=== PATIENT | female | born 1940 | race Caucasian/White ===

== ENCOUNTER 2019-11-17 00:23 | Observation (INO) | payer OTHER ==
--- OUTSIDE RECORDS SUMMARY | 2019-11-17 00:25 | XMS REPORT | Continuity of Care Document ---
:1940 Author Organization [facility] t Address [address] [place] [address] Care Team Providers Name Role Phone Unavailable Unavailable Unavailable Problems Condition Condition Condition Status Onset Resolution Last Treating Co mments Source Name Details Category Date Date Treatment Clinician Date Hyperlipem Hyperlipem Problem Active [facility] Arrhythmia Arrhythmia Problem Active [facility] Essential Essential Problem Active [facility] hypertensi hypertensi Anju kes - on on [facility] Sinus Sinus Problem Active [facility] problem problem [facility] Allergic Allergic Problem Active [facility]initis, [facility]initis, Luke [facility] - unspecifie unspecifie Me moria d d l [facility] Allergies, Adverse Reactions, Alerts Allergy Allergy Status Severity Reaction(s) Onset Inactive Treating Comm ents Source Name Type Date Date Clinician Sulfa Adverse Active itching [facility] Medications Ordered Filled Start Stop Current Ordering Indication Dosage Frequency Signature Comments Components Source Medication Medication Date Date Medication? Clinician (SIG) Name Name Augmentin Augmentin 2020- Yes Ana Rosa [address] [facility] 7[facility]15 07-25 [facility] ProAir HFA ProAir HFA 2017-0 Yes Ana Rosa [address] [facility] 5[facility]24 Millender needed [facility] Aspirin Aspirin Yes Ana Rosa [address] [facility] Lisinopril Lisinopril Yes Ana Rosa [address] [facility] Fish Oil Fish Oil Yes Ana Rosa [address] [facility] Multaq Multaq Yes Ana Rosa [address] [facility] [place] with meals [facility] [facility] Procedures This patient has no known procedures. Encounters Start End Encounter Admission Attending Care Care Encounter Source Date/Time Date/Time Type Type Clinicians Facility Department ID 2019-10-03 2019-10-03 [facility] [place] [id number] [facility] 23:11[facility]00 23:11[facility]00 [facility] 2019-10-03 2019-10-03 [facility] [id number] [facility] 10:14:00 10:14:00 [facility] 2019-10-03 2019-10-03 [facility] [id number] [facility] 08:40[facility]00 08:40[facility]00 [facility] 2019-09-20 2019-09-20 [facility] [id number] 09:03:00 09:03:00 [facility] Medicine Outpati ent Clinics 2019-07-31 2019-07-31 [facility] [id number] [address] 16:15:00 16:15:00 [facility] Medicine Outpati ent Clinics 2019-07-27 2019-07-27 [facility] [id number] [facility] 13:00:00 13:00:00 [facility] 2019-01-01 2019-01-01 [facility] [id number] [address] 08:20:00 08:20:00 [facility] Medicine Outpati ent Clinics 2018-12-29 2018-12-29 [facility] [id number] [address] 09:32:00 09:32:00 [facility] Medicine Outpati ent Clinics 2018-09-19 2018-09-19 [facility] [id number] 14:00:00 14:00:00 [facility] 2018-07-10 2018-07-10 Outpatient Saran Noonant [id number] 12:45:00 12:45:00 t [facility] 2018-05-08 2018-05-08 Outpatient Saran King [id number] [facility] 10:15:00 10:15:00 t [facility] ent Clinics 2017-12-05 2017-12-05 Outpatient Saran King [id number] 11:00:00 11:00:00 t [facility] ent Clinics Results This patient has no known results.
--- OUTSIDE RECORDS SUMMARY | 2019-11-17 00:25 | XMS REPORT ---
:1940 Author Organization [employer] Care Team Providers Name Role Phone Ana Rosa Garcia Provider Role Unavailable Allergies No Known Allergies Problems Problem Type Condition Code Onset Dates Condition Statu s Problem HTN (hypertension) I10 Active Problem Hyperlipemia E78.5 Active Problem Essential hypertension I10 Activ e Problem Allergic rhinitis, unspecified J30.9 Active Problem Arrhythmia I49.9 Active Problem Sinus problem J34.9 Active Medications No Known Medications Results No Known Results Summary Purpose eClinicalWorks Submission
--- OUTSIDE RECORDS SUMMARY | 2019-11-17 00:25 | XMS REPORT ---
:1940 Author Organization [employer] Care Team Providers Name Role Phone Ana Rosa Garcia Provider Role Unavailable Allergies, Adverse Reactions, Alerts Substance Reaction Event Type Sulfa itching Drug Allergy Problems Problem Type Condition Code Onset Dates Condition Statu s Assessment Essential hypertension I10 Activ e Assessment URI, acute J06.9 Active Assessment Otalgia, bilateral H92.03 Active Problem HTN (hypertension) I10 Active Problem Hyperlipemia E78.5 Active Problem Essential hypertension I10 Activ e Problem Allergic rhinitis, unspecified J30.9 Active Problem Arrhythmia I49.9 Active Problem Sinus problem J34.9 Active Medications Medication Code System Code Instructions Start End Date Status Dos age Date Multaq [facility] 90564390982 400 MG Orally Active 1 tabl et Twice a day with meals ProAir HFA [facility] 34130305399 108 (90 Base) August 11, Active 2 p uffs as MCG/ACT 2017 needed Inhalation every 4-6 hrs Fish Oil ND 16778618749 1000 MG Orally Active 1 ca psule Once a day Lisinopril ND 11784623833 10 MG Orally Active 1 ta blet Once a day Aspirin ND 47135057963 325 MG Orally Active 1 tabl et Once a day Augmentin [facility] 94071572161 500-125 MG October 02October 12, Active 1 tab let Orally Twice 2019 2019 daily Results No Known Results Summary Purpose eClinicalWorks Submission
--- OUTSIDE RECORDS SUMMARY | 2019-11-17 00:25 | XMS REPORT ---
:1940 Author Organization [employer] Care Team Providers Name Role Phone Ana Rosa Garcia Provider Role Unavailable Allergies No Known Allergies Problems Problem Type Condition Code Onset Dates Condition Statu s Problem Hyperlipemia E78.5 Active Problem Arrhythmia I49.9 Active Problem HTN (hypertension) I10 Active Problem Sinus problem J34.9 Active Problem Allergic rhinitis, unspecified J30.9 Active Medications No Known Medications Results No Known Results Summary Purpose eClinicalWorks Submission
[2019-11-17] MEDS ORDERED: ALBUTEROL 2.5 MG/3 ML NEB SOL ONE (00:48)
[2019-11-17] MEDS ORDERED: IPRATROPIUM BROM 0.5MG/2.5ML ONE (00:48)
[2019-11-17] MEDS ORDERED: METHYLPREDNISOLONE 125 MG INJ ONE (01:23)
[2019-11-17] MEDS ORDERED: FUROSEMIDE 40 MG/4 ML VIAL ONE (01:23)
[2019-11-17] MEDS ORDERED: CEFTRIAXONE/SWI 1gm 1 GM/10 ML SYR ONE (01:24)
[2019-11-17] MEDS ORDERED: NA CHLORIDE 0.9% 1,000 ML ONE (01:24)
[2019-11-17 01:29] LABS: Absolute Lymphocytes (CBC) 2.3 K/uL (0.7-4.9); Basophils % 1.2 % (0-1.3); Hematocrit 40.8 % (36.0-45.0); Lymphocytes % 36.3 % (15.3-44.8); MPV 8.3 fL (7.6-11.3); RBC Red Blood Cell Count 4.41 M/uL (3.86-4.86)
[2019-11-17 01:45] LABS: ALT/SGPT 26 U/L (12-78); AST/SGOT 14 U/L (15-37); Albumin 3.8 g/dL (3.4-5.0); Alkaline Phosphatase 99 U/L (45-117); BUN Blood Urea Nitrogen 18 mg/dL (7-18); Bicarbonate 28 mmol/L (21-32); Bilirubin Direct 0.1 mg/dL (0-0.2); Bilirubin Total 0.5 mg/dL (0.2-1.0); Glucose Level 105 mg/dL (74-106); Magnesium 2.1 mg/dL (1.8-2.4); NT PRO-BNP 175 pg/mL (<450); Potassium 3.8 mmol/L (3.5-5.1); Protein, Total 7.6 g/dL (6.4-8.2); Sodium Level 143 mmol/L (136-145); Troponin (Emerg Dept Use Only) < 0.02 ng/mL (0.0-0.045)
--- NOTE | 2019-11-17 02:07 | EDPHYS ---
Physician Documentation [facility] Name: Dianne Stockton Age: 79 yrs Sex: Female : 1940 Arrival Date: 11/17/2019 Time: 00:24 Bed 4 Private MD: ED Physician Desean Barros HPI: 11/16 01:26 This 79 yrs old Female presents to ER via Unassigned with complaints of etta Shortness Of Breath. 01:26 The patient has shortness of breath with light activity. Onset: The symptoms/episode etta began/occurred last night. Duration: The symptoms are continuous, and are steadily getting worse. The patient's shortness of breath has no apparent modifying factors. Associated signs and symptoms: Pertinent positives: non-productive cough. Severity of symptoms: At their worst the symptoms were moderate in the emergency department the symptoms are unchanged. The patient has not experienced similar symptoms in the past. Historical: - Allergies: 01:43 Sulfa; bb - Home Meds: 01:43 Multaq oral oral [Active]; bb - PMHx: 01:43 Hypertension; enlarged heart; bb - Immunization history:: Adult Immunizations not up to date. - Social history:: Smoking status: Patient denies any tobacco usage or history of. - Family history:: not pertinent. ROS: 01:27 Constitutional: Negative for fever, chills, and weight loss, Eyes: Negative for injury, etta pain, redness, and discharge, ENT: Negative for injury, pain, and discharge, Neck: Negative for injury, pain, and swelling, Abdomen/GI: Negative for abdominal pain, nausea, vomiting, diarrhea, and constipation, Back: Negative for injury and pain, : Negative for injury, bleeding, discharge, and swelling, MS/Extremity: Negative for injury and deformity, Skin: Negative for injury, rash, and discoloration, Neuro: Negative for headache, weakness, numbness, tingling, and seizure, Psych: Negative for depression, anxiety, suicide ideation, homicidal ideation, and hallucinations, Allergy/Immunology: Negative for hives, rash, and allergies, Endocrine: Negative for neck swelling, polydipsia, polyuria, polyphagia, and marked weight changes, Hematologic/Lymphatic: Negative for swollen nodes, abnormal bleeding, and unusual bruising. 01:27 Cardiovascular: Positive for chest pain, palpitations. 01:27 Respiratory: Positive for cough, dyspnea on exertion, shortness of breath, wheezing, inspiratory, expiratory. Exam: 01:27 Constitutional: This is a well developed, well nourished patient who is awake, alert, etta and in no acute distress. Head/Face: Normocephalic, atraumatic. Eyes: Pupils equal round and reactive to light, extra-ocular motions intact. Lids and lashes normal. Conjunctiva and sclera are non-icteric and not injected. Cornea within normal limits. Periorbital areas with no swelling, redness, or edema. ENT: Nares patent. No nasal discharge, no septal abnormalities noted. Tympanic membranes are normal and external auditory canals are clear. Oropharynx with no redness, swelling, or masses, exudates, or evidence of obstruction, uvula midline. Mucous membranes moist. Neck: Trachea midline, no thyromegaly or masses palpated, and no cervical lymphadenopathy. Supple, full range of motion without nuchal rigidity, or vertebral point tenderness. No Meningismus. Chest/axilla: Normal chest wall appearance and motion. Nontender with no deformity. No lesions are appreciated. Abdomen/GI: Soft, non-tender, with normal bowel sounds. No distension or tympany. No guarding or rebound. No evidence of tenderness throughout. Back: No spinal tenderness. No costovertebral tenderness. Full range of motion. Female : Normal external genitalia. Skin: Warm, dry with normal turgor. Normal color with no rashes, no lesions, and no evidence of cellulitis. MS/ Extremity: Pulses equal, no cyanosis. Neurovascular intact. Full, normal range of motion. Neuro: Awake and alert, GCS 15, oriented to person, place, time, and situation. Cranial nerves II-XII grossly intact. Motor strength 5/5 in all extremities. Sensory grossly intact. Cerebellar exam normal. Normal gait. Psych: Awake, alert, with orientation to person, place and time. Behavior, mood, and affect are within normal limits. 01:27 Cardiovascular: Rate: tachycardic, Rhythm: regular, Heart sounds: normal, normal S1and S2, no S3 or S4, no murmur, no rub, no gallop, JVD: is not appreciated. 02:09 ECG was reviewed by the Attending Physician. [facility] Vital Signs: 00:34 BP 181 / 127; Pulse 119; Temp 97.9; Pulse Ox 93% on 2 lpm NC; Weight 72.57 kg (R); bb 01:00 BP 143 / 79; Pulse 77; Resp 20 S; Pulse Ox 99% on 2 lpm NC; bb 01:30 BP 137 / 78; Pulse 74; Resp 18 S; Pulse Ox 98% on 2 lpm NC; bb 05:21 BP 114 / 78; Pulse 64; Resp 18; Pulse Ox 96% on 2 lpm NC; ea 06:02 BP 105 / 59; Pulse 65; Resp 19; Pulse Ox 95% on 2 lpm NC; ea MDM: 00:44 Patient medically screened. etta 01:28 Differential diagnosis: Anxiety Reaction asthma, Bronchitis CHF exacerbation, Chronic etta Obstructive Pulmonary Disease hypertensive crisis, Malignant HTN, pneumonia, Pneumothorax pulmonary edema, Pulmonary Embolism Sepsis. Antibiotic administration: rocephin. The patient's Wells Deep Vein Thrombosis Score was calculated as follows: Total Score: 0-2 Pts- Low Risk. The patient's pulmonary embolism risk score was calculated as follows: Total Score: 0-2 points. This patient was found to be at low risk for a pulmonary embolism by using the Well's assessment criteria. Immunization status: Influenza vaccine: Data reviewed: vital signs, nurses notes, lab test result(s), EKG, radiologic studies, plain films. Data interpreted: youth nutritional monitor: rate is 119 beats/min, rhythm is regular, Pulse oximetry:. Test interpretation: by ED physician or midlevel provider: ECG, plain radiologic studies. 02:06 ED course: improved, decreased wheezing , better air movement, blood pressure. [facility] 02:08 ED course: needs echo, repeat cxr, obs. [facility] 11/16 00:46 Order name: Basic Metabolic Panel; Complete Time: 02:04 [facility] 11/16 00:46 Order name: CBC with Diff; Complete Time: 02:04 [facility] 11/16 00:46 Order name: LFT's; Complete Time: 02:04 [facility] 11/16 00:46 Order name: Magnesium; Complete Time: 02:04 [facility] 11/16 00:46 Order name: NT PRO-BNP; Complete Time: 02:04 [facility] 11/16 00:46 Order name: PT-INR; Complete Time: 02:04 [facility] 11/16 00:46 Order name: Troponin (emerg Dept Use Only); Complete Time: 02:04 [facility] 11/16 00:46 Order name: Blood Culture Adult (2) [facility] 11/16 01:08 Order name: Lactate; Complete Time: 02:04 tt3 11/16 02:15 Order name: Urine Dipstick--Ancillary (enter results) tt 11/16 02:16 Order name: Urine Dipstick-Ancillary [facility] 11/16 02:17 Order name: Urinalysis EDAL 11/16 02:17 Order name: Basic Metabolic Panel [facility] 11/16 02:17 Order name: Basic Metabolic Panel [facility] 11/16 00:46 Order name: XRAY Chest (1 view) [facility] 11/16 00:46 Order name: EKG; Complete Time: 00:47 [facility] 11/16 02:17 Order name: CBC with Automated Diff [facility] 11/16 02:17 Order name: CBC with Automated Diff [facility] 11/16 02:48 Order name: Urine Culture [facility] 11/16 03:46 Order name: COVID-19 11/16 03:54 Order name: CORONAVIRUS [facility] 11/16 04:52 Order name: SARS-COV-2 RT PCR [facility] 11/16 00:46 Order name: Cardiac monitoring; Complete Time: 01:29 [facility] 11/16 00:46 Order name: EKG - Nurse/Tech; Complete Time: 02:01 [facility] 11/16 00:46 Order name: IV Saline Lock; Complete Time: 01: [facility] 11/16 00:46 Order name: Labs collected and sent; Complete Time: 01: [facility] 11/16 00:46 Order name: O2 Per Protocol; Complete Time: : [facility] 11/16 00:46 Order name: O2 Sat Monitoring; Complete Time: : [facility] 11/16 02:14 Order name: CONS Physician Consult [facility] 11/16 02:17 Order name: Regular EDAL EC:09 Rate is 68 beats/min. Rhythm is regular. QRS [place] is Normal. DE interval is normal. QRS etta interval is normal. QT interval is normal. No Q waves. T waves are Normal. Clinical impression: NSR w/ Non-specific ST/T Changes and No evidence of ischemia. Interpreted by me. Reviewed by me. Administered Medications: 11/15 00:50 Drug: Albuterol 2.5 mg Route: Inhalation; 11/16 00:50 Drug: AtroVENT Aerosol 0.5 mg Route: Inhalation; bb 02:50 Follow up: Response: Marked relief of symptoms bb 00:50 Drug: Albuterol 2.5 mg Route: Inhalation; bb 02:50 Follow up: Response: Marked relief of symptoms bb 00:50 Drug: Albuterol 2.5 mg Route: Inhalation; bb 01:07 CANCELLED (Physician Discretion): Nitro-Bid Ointment 2 % 1 inches Transdermal once bb 01:10 Drug: NS 0.9% 1000 ml Route: IV; Rate: 75 ml/hr; Site: right antecubital; bb 02:50 Follow up: IV Status: Infusion continued upon admission bb 01:15 Drug: Rocephin 1 grams Route: IV; Rate: per protocol; Site: right antecubital; bb 01:20 Follow up: IV Status: Completed infusion; IV Intake: 10ml bb 01:19 Drug: SOLU-Medrol 125 mg Route: IVP; Site: right antecubital; bb 02:00 Follow up: Response: No adverse reaction bb 01:20 Drug: Lasix 40 mg Route: IVP; Site: right antecubital; bb 01:30 Follow up: Response: No adverse reaction bb 01:28 CANCELLED (Other Intervention Used): Xopenex 3.75 mg Inhalation once bb Disposition: 11/17/19 02:06 Hospitalization ordered by Ibrahima Yo for Observation. Preliminary diagnosis are Dyspnea, Cardiomegaly, Chronic obstructive pulmonary disease with (acute) exacerbation, Hypoxemia, Urinary tract infection, site not specified. - Bed requested for Telemetry/MedSurg (Inpatient). - Status is Observation. tt3 - Condition is Stable. - Problem is new. - Symptoms have improved. Signatures: Dispatcher [employer] EDAL Ramandeep Alfaro RN RN mw Anderson, Corey, MD MD cha Ballard, Brenda, RN RN bb Trim, Tyler tt3 Corrections: (The following items were deleted from the chart) 01:07 00:46 Nitro-Bid Ointment 2 % 1 inches Transdermal once ordered. [facility] bb 01:28 00:46 Xopenex 3.75 mg Inhalation once ordered. [facility] bb 02:21 02:06 Hospitalization Ordered by Ibrahima Yo MD for Observation. Preliminary diagnosis is Dyspnea; Cardiomegaly; Chronic obstructive pulmonary disease with (acute) exacerbation; Hypoxemia. Bed requested for Telemetry/MedSurg (observation). Status is Observation. Condition is Stable. Problem is new. Symptoms have improved. etta 02:47 02:21 11/17/2019 02:06 Hospitalization Ordered by Ibrahima Yo MD for Observation. etta Preliminary diagnosis is Dyspnea; Cardiomegaly; Chronic obstructive pulmonary disease with (acute) exacerbation; Hypoxemia. Bed requested for [facility] ER HOLD. Status is Observation. Condition is Stable. Problem is new. Symptoms have improved. 05:03 02:47 11/17/2019 02:06 Hospitalization Ordered by Ibrahima Yo MD for Observation. mw Preliminary diagnosis is Dyspnea; Cardiomegaly; Chronic obstructive pulmonary disease with (acute) exacerbation; Hypoxemia; Urinary tract infection, site not specified. Bed requested for [facility] ER HOLD. Status is Observation. Condition is Stable. Problem is new. Symptoms have improved. [facility] 06:18 05:03 11/17/2019 02:06 Hospitalization Ordered by Ibrahima Yo MD for Observation. tt3 Preliminary diagnosis is Dyspnea; Cardiomegaly; Chronic obstructive pulmonary disease with (acute) exacerbation; Hypoxemia; Urinary tract infection, site not specified. Bed requested for Telemetry/MedSurg (Inpatient). Status is Observation. Condition is Stable. Problem is new. Symptoms have improved. mw
--- NOTE | 2019-11-17 02:07 | ER ---
Nurse's Notes [facility] Name: Dianne Stockton Age: 79 yrs Sex: Female : 1940 Arrival Date: 11/17/2019 Time: 00:24 Bed 4 Private MD: Diagnosis: Dyspnea;Cardiomegaly;Chronic obstructive pulmonary disease with (acute) exacerbation;Hypoxemia;Urinary tract infection, site not specified Presentation: 11/16 00:30 Chief complaint: Patient states: she has been short of breath for several days bb worsening tonight. Coronavirus screen: cough unrelated to allergies, difficulty breathing, The client reports previous COVID testing was negative. Ebola Screen: No symptoms or risks identified at this time. Initial Sepsis Screen: Does the patient meet any 2 criteria? RR > 20 per min. HR > 90 bpm. Yes Does the patient have a suspected source of infection? Yes: Productive cough/pneumonia If YES to both, name of provider notified: Desean Barros MD Risk Assessment: Do you want to hurt yourself or someone else? Patient reports no desire to harm self or others. Onset of symptoms was November 17, 2019. 00:30 Method Of Arrival: Ambulatory bb 00:30 Acuity: MADHAVI 2 bb Triage Assessment: 00:30 General: Appears distressed, Behavior is anxious. Pain: Denies pain. Neuro: Level of bb Consciousness is awake, alert, obeys commands, Oriented to person, place, time, situation. Cardiovascular: Heart tones present Capillary refill < 3 seconds Patient's skin is warm and dry. Respiratory: Reports shortness of breath Onset: The symptoms/episode began/occurred at an unknown time. the patient has moderate shortness of breath. Historical: - Allergies: 01:43 Sulfa; bb - Home Meds: 01:43 Multaq oral oral [Active]; bb - PMHx: 01:43 Hypertension; enlarged heart; bb - Immunization history:: Adult Immunizations not up to date. - Social history:: Smoking status: Patient denies any tobacco usage or history of. - Family history:: not pertinent. Screenin:30 Abuse screen: Denies threats or abuse. Nutritional screening: No deficits noted. bb Tuberculosis screening: No symptoms or risk factors identified. Fall Risk None identified. Assessment: 00:30 General: Appears distressed, Behavior is anxious. Neuro: Level of Consciousness is bb awake, alert, obeys commands, Oriented to person, place, time, situation. Cardiovascular: Rhythm is sinus rhythm. Respiratory: Airway is patent Respiratory effort is labored, Respiratory pattern is tachypnea Breath sounds with wheezes bilaterally. 01:00 Reassessment: Patient states feeling better. Patient states symptoms have improved. bb resp less labored. Pt notified of need for admit. 02:00 Reassessment: pt ambulated to bathroom instructed on need for wheelchair next time she bb needs to visit the bathroom she verbalized understanding of and agreed to notify when needed. 02:52 Reassessment: pt assisted to bathroom via wheelchair and is A\T\O x 4, resp unlabored, bb awaiting room assignment. 04:50 Reassessment: Daughter [phone]. ea 05:02 Reassessment: Patient and/or family updated on plan of care and expected duration. Pain ea level reassessed. Patient is alert, oriented x 3, equal unlabored respirations, skin warm/dry/pink. Patient states feeling better. Patient states symptoms have improved. 06:00 Reassessment: Patient and/or family updated on plan of care and expected duration. Pain ea level reassessed. Patient is alert, oriented x 3, equal unlabored respirations, skin warm/dry/pink. Pt admitted to fourth floor. Pt left ED via wheelchair with O 2 at 2L per nasal cannula, pt taken per tech. Pt tolerating well. Vital Signs: 00:34 BP 181 / 127; Pulse 119; Temp 97.9; Pulse Ox 93% on 2 lpm NC; Weight 72.57 kg (R); bb 01:00 BP 143 / 79; Pulse 77; Resp 20 S; Pulse Ox 99% on 2 lpm NC; bb 01:30 BP 137 / 78; Pulse 74; Resp 18 S; Pulse Ox 98% on 2 lpm NC; bb 05:21 BP 114 / 78; Pulse 64; Resp 18; Pulse Ox 96% on 2 lpm NC; ea 06:02 BP 105 / 59; Pulse 65; Resp 19; Pulse Ox 95% on 2 lpm NC; ea ED Course: 00:24 Patient arrived in ED. cl3 00:30 Arm band placed on Patient placed in an exam room, on a stretcher, on cardiac cath technician, bb on pulse oximetry. Family accompanied patient. 00:30 Patient has correct armband on for positive identification. Placed in gown. Bed in low bb position. Call light in reach. Side rails up X 1. secured entrance monitor on. Pulse ox on. NIBP on. 00:44 Desean Barros MD is Attending Physician. etta 00:49 Inserted saline lock: 20 gauge in right antecubital area, using aseptic technique. bb Blood collected. 00:50 Initial lab(s) drawn, by me, sent to lab. First set of blood cultures drawn by me. bb 01:10 Second set of blood cultures drawn by me. bb 01:38 Triage completed. bb 01:55 XRAY Chest (1 view) In Process Unspecified. EDMS 01:55 Patient admitted, IV remains in place. bb 02:05 Ibrahima Yo MD is Hospitalizing Provider. etta 02:27 Nicol Petersen RN is Primary Nurse. ea 02:48 No provider procedures requiring assistance completed. bb Administered Medications: 11/15 00:50 Drug: Albuterol 2.5 mg Route: Inhalation; bb 11/16 00:50 Drug: AtroVENT Aerosol 0.5 mg Route: Inhalation; bb 02:50 Follow up: Response: Marked relief of symptoms bb 00:50 Drug: Albuterol 2.5 mg Route: Inhalation; bb 02:50 Follow up: Response: Marked relief of symptoms bb 00:50 Drug: Albuterol 2.5 mg Route: Inhalation; bb 01:07 CANCELLED (Physician Discretion): Nitro-Bid Ointment 2 % 1 inches Transdermal once bb 01:10 Drug: NS 0.9% 1000 ml Route: IV; Rate: 75 ml/hr; Site: right antecubital; bb 02:50 Follow up: IV Status: Infusion continued upon admission bb 01:15 Drug: Rocephin 1 grams Route: IV; Rate: per protocol; Site: right antecubital; bb 01:20 Follow up: IV Status: Completed infusion; IV Intake: 10ml bb 01:19 Drug: SOLU-Medrol 125 mg Route: IVP; Site: right antecubital; bb 02:00 Follow up: Response: No adverse reaction bb 01:20 Drug: Lasix 40 mg Route: IVP; Site: right antecubital; bb 01:30 Follow up: Response: No adverse reaction bb 01:28 CANCELLED (Other Intervention Used): Xopenex 3.75 mg Inhalation once bb Intake: 01:20 IV: 10ml; Total: 10ml. bb Outcome: 01:49 Instructed on the need for admit. bb 02:06 Decision to Hospitalize by Provider. etta 02:48 Admitted to Tele Report called to Lexie GARZA bb 02:53 Condition: stable bb 06:18 Patient left the ED. tt3 Signatures: Dispatcher [employer] EDDesean Robison MD MD cha Ballard, Brenda RN RN Nicol Burrell RN RN ea Lewis, Charde cl3 Trim, Agustín tt3 Corrections: (The following items were deleted from the chart) 00:36 00:34 BP 181 / 127; Pulse 119bpm; Pulse Ox 93% 3 lpm Nasal Cannula; Temp 97.9F; tt3 tt3 01:55 00:34 BP 181 / 127; Pulse 119bpm; Pulse Ox 93% 2 lpm Nasal Cannula; Temp 97.9F; tt3 bb 02:01 00:30 Cardiovascular: Rhythm is sinus tachycardia bb bb
[2019-11-17 02:18] LABS: Urine Blood NEGATIVE (NEG); Urine Glucose NEGATIVE (NEG); Urine Protein NEGATIVE (NEG)
[2019-11-17 02:46] VITALS: TEMP 97.9
--- NOTE | 2019-11-17 02:46 | P.HP ---
Certification for Inpatient Patient admitted to: Observation With expected LOS: <2 Midnights Patient will require the following post-hospital care: None Practitioner: I am a practitioner with admitting privileges, knowledge of patient current condition, hospital course, and medical plan of care. Services: Services provided to patient in accordance with Admission requirements found in Title 42 Section 412.3 of the Code of Federal Regulations Patient History Date of Service: 11/17/19 Reason for admission: COPD exacerbation/shortness of breath History of Present Illness: 79-year-old female with a past medical history of hypertension and an enlarged heart presents to the emergency room complaining of worsening shortness of breath. Patient states the onset was last night and have progressively worsened. Patient does not smoke but is to a smoker for 17 years and lives in a household with smokers. In the emergency room patient is alert and oriented x4, pleasant and cooperative. She is anxious and worried about staying in the hospital. Admits to not taking her medication as prescribed. Will skip medications and take half doses. Emergency room chest x-ray shows an enlarged heart. Likely COPD that is undiagnosed. Patient is on 2 L nasal cannula with oxygen saturations of 98%. She was given breathing treatments in the ED and IV Lasix which improved her breathing. She is noted to have inspire turn expiratory wheezing. Patient will be placed in observation and further evaluated. Allergies Sulfa (Sulfonamide Antibiotics) Allergy (Mild, Verified 05/13/12 07:30) HIVE Home medications list reviewed: Yes - Past Medical/Surgical History Diabetic: No -: Essential hypertension -: Enlarged heart -: None Psychosocial/ Personal History: Lives at home with who has been smoking for 17 years. Also daughter who smokes. - Family History Family History: Reviewed- Non-Contributory - Social History Smoking Status: Never smoker Smoking therapy provided: No Patient receptive to therapy: No Alcohol use: No CD- Drugs: No Caffeine use: No Place of Residence: Home Review of Systems General: As per HPI Eyes: Unremarkable ENT: Unremarkable Respiratory: Shortness of Breath, As per HPI Cardiovascular: Unremarkable Gastrointestinal: Unremarkable Genitourinary: Unremarkable Musculoskeletal: Unremarkable Integumentary: Unremarkable Neurological: Unremarkable Lymphatics: Unremarkable Physical Examination - Vital Signs Temperature: 97.9 F Blood Pressure: 137/78 Pulse: 74 Respirations: 18 Pulse Ox (%): 98 (2L NC) - Physical Exam General: Alert, In no apparent distress, Oriented x3 HEENT: Atraumatic, Normocephalic, PERRLA, Mucous membr. moist/pink Neck: Supple, Other (Trachea midline) Respiratory: Diminished, Expiratory wheezes, Inspiratory wheezes Cardiovascular: No edema, Normal pulses Capillary refill: <2 Seconds Gastrointestinal: Normal bowel sounds, Soft and benign, Non-distended Musculoskeletal: No clubbing, No swelling, No contractures, No erythema Integumentary: No breakdown, No significant lesion, No tenderness/swelling Neurological: Normal gait, Normal speech, Normal strength at 5/5 x4 extr, Normal tone - Studies Laboratory Data (last 24 hrs) 11/17/19 00:50: PT 11.8, INR 1.00 11/17/19 00:50: WBC 6.5, Hgb 13.6, Hct 40.8, Plt Count 271 11/17/19 00:50: Sodium 143, Potassium 3.8, BUN 18, Creatinine 0.82, Glucose 105, Magnesium 2.1, Total Bilirubin 0.5, AST 14 L, ALT 26, Alkaline Phosphatase 99 Assessment and Plan - Plan Impression: COPD with acute exacerbation: Essential hypertension complicated by noncompliance with medications: Enlarged heart: Plan: COPD with acute exacerbation: Likely a new diagnosis for patient. She does not smoke but has been to a smoker for 17 years and her daughter smoke. Patient has been prescribed inhalers in the past but has not renewed prescriptions. Pulmonology consult in place Dr Mcgee. Will continue O2 support if necessary. Will start breathing treatments, IV methylprednisolone, budesonide and DuoNeb treatments. Monitor O2 sats. Essential hypertension complicated by noncompliance with medications: Patient takes lisinopril 20 mg daily but has been cutting back on her medications, skipping medication and not renewing prescriptions. Was noted to have slightly elevated blood pressure on admission. Blood pressure is better controlled now. Continue monitoring blood pressure. Enlarged heart: Patient takes dronendarone for a regular heart rate. Chest x- ray shows enlarged heart. Has been noncompliant with her medications. Taking half doses. Counseled. Discharge Plan: Home Plan to discharge in: 48 Hours - Advance Directives Does patient have a Living Will: No Does patient have a Durable POA for Healthcare: No - Code Status/Comfort Care Code Status Assessed: Yes Time Spent Managing Pts Care (In Minutes): 55
--- NOTE | 2019-11-17 05:45 | EKG ---
Test Date: 2019-11-17 Test Time: 01:55:23 Script Coordinator: CINDI MEASUREMENT RESULTS: Intervals: Rate: 68 [place]: 158 QRSD: 92 QT: 414 QTc: 440 [place]: P: 74 [place]: 158 QRS: 23 T: 118 INTERPRETIVE STATEMENTS: Sinus rhythm with sinus arrhythmia with occasional premature ventricular complexes Nonspecific T wave abnormality Abnormal ECG Compared to ECG 02/19/2008 09:46:04 Ventricular premature complex(es) now present T-wave abnormality now present Sinus bradycardia no longer present ST (T wave) deviation no longer present Electronically Signed On 11-17-19 05:45:04 CDT by Roland Garcia
[2019-11-17 06:36] VITALS: BP 123/62
[2019-11-17 06:53] VITALS: BMI 26.5
[2019-11-17] MEDS ORDERED: HYDRALAZINE HCL 20 MG/ML VIAL IV PRN (07:22)
[2019-11-17] MEDS ORDERED: BUDESONIDE 0.5 MG/2 ML NEB NEB SCH (08:00)
[2019-11-17] MEDS ORDERED: IPRATROPIUM BROM 0.5MG/2.5ML NEB SCH (08:00)
[2019-11-17] MEDS: ENOXAPARIN 40 MG/0.4 ML SQ SCH ×2 (08:25→09:00)
[2019-11-17] MEDS ORDERED: METHYLPREDNISOLONE 40 MG INJ IV SCH (09:00)
[2019-11-17] MEDS ORDERED: PNEUMOCOCCAL VACCINE 0.5 ML IMVAC ONE (09:00)
[2019-11-17] MEDS ORDERED: FUROSEMIDE 40 MG/4 ML VIAL IV SCH (09:00)
--- NOTE | 2019-11-17 09:28 | RAD REPORT ---
EXAM DESCRIPTION: RAD - Chest Single View - 11/17/2019 1:55 am CLINICAL HISTORY: Cough;COPD COMPARISON: Two view chest October 2016 TECHNIQUE: AP portable chest image was obtained 11/17/2019 1:55 am . FINDINGS: Lung volumes are low. Interstitial markings are prominent. Pattern is not substantially di fferent. Mild edema or infiltrate could be masked by the chronic presentation. No focal consolidation . Hilar regions are grossly normal but obscured by patient rotation. Heart and vasculature are normal . No measurable pleural effusion and no pneumothorax. No acute bone finding. Bilateral shoulder joint degenerative changes are identifiable. No acute aortic findings suspected. IMPRESSION: No focal mass or consolidation identified. Prominent interstitial pattern accentuated by shallow inspiration. This could mask early edema or inf iltrate.
[2019-11-17 09:46] VITALS: O2SAT 98
[2019-11-17 09:52] LABS: Urine Appearance CLEAR; Urine Bilirubin NEGATIVE (NEG); Urine Blood NEGATIVE (NEG); Urine Color YELLOW; Urine Glucose NEGATIVE (NEG); Urine Protein NEGATIVE (NEG); Urine Urobilinogen 0.2 mg/dL (0.2-1.0); Urine pH 5.5 (5.0-7.0)
[2019-11-17 09:55] LABS: Urine Microscopic Reflex NO UMIC
--- NOTE | 2019-11-17 11:01 | P.CNS ---
Date of Consult: 11/17/19 Reason for Consult: Cough Chief Complaint: Cough History of Present Illness: Patient is 79 years of age very pleasant lady use at a chronic cough for about a month she has repeatedly be in correa virus negative does not smoke no prior history of pulmonary complaints is been complaining of acid reflux patient is also on an KAROLINE-inhibitor Allergies Sulfa (Sulfonamide Antibiotics) Allergy (Mild, Verified 05/13/12 07:30) HIVE Home Medications: Aspirin 325 mg PO DAILY 11/17/19 Dronedarone [Multaq*] 400 mg PO BID 11/17/19 Lisinopril [Zestril] 10 mg PO DAILY 11/17/19 Loratadine [Claritin*] 10 mg PO PRN PRN 11/17/19 [place]-3S/Dha/Epa/Fish Oil [Fish Oil 1,200 mg Softgel] 1 cap PO DAILY 11/17/19 - Past Medical/Surgical History Diabetic: No -: Essential hypertension -: Enlarged heart -: None Psychosocial/ Personal History: Lives at home with who has been smoking for 17 years. Also daughter who smokes. - Social History Alcohol use: No CD- Drugs: No Caffeine use: No Place of Residence: Home Review of Systems 10-point ROS is otherwise unremarkable Physical Examination Temp Pulse Resp BP Pulse Ox 97.9 F 63 20 123/62 93 11/17/19 08:00 11/17/19 08:26 11/17/19 08:00 11/17/19 08:26 11/17/19 08:00 General: Alert, Oriented x3 Neck: Supple Respiratory: Clear to auscultation bilaterally Cardiovascular: No edema, Regular rate/rhythm Laboratory Data (last 24 hrs) 11/17/19 00:50: PT 11.8, INR 1.00 11/17/19 00:50: WBC 6.5, Hgb 13.6, Hct 40.8, Plt Count 271 11/17/19 00:50: Sodium 143, Potassium 3.8, BUN 18, Creatinine 0.82, Glucose 105, Magnesium 2.1, Total Bilirubin 0.5, AST 14 L, ALT 26, Alkaline Phosphatase 99 - Problems (1) Cough due to KAROLINE inhibitor Current Visit: Yes Status: Acute Plan: Patient is 79 years of age admitted with a chronic cough recommend stopping the KAROLINE-inhibitor also has a history of reflux had proton pump inhibitor doubt if she has COPD labs reviewed unremarkable follow-up with me next week labs unremarkable chest x-ray clear room-air saturation is normal
--- NOTE | 2019-11-17 11:04 | P.DS ---
Admission Date: 11/17/19 Discharge Date: 11/17/19 Disposition: ROUTINE DISCHARGE Discharge Condition: GOOD Reason for Admission: Cough Brief History of Present Illness: 79-year-old female with a past medical history of hypertension and an enlarged heart presents to the emergency room complaining of worsening shortness of breath. Patient states the onset was last night and have progressively worsened. Patient does not smoke but is to a smoker for 17 years and lives in a household with smokers. In the emergency room patient is alert and oriented x4, pleasant and cooperative. She is anxious and worried about staying in the hospital. Admits to not taking her medication as prescribed. Will skip medications and take half doses. Emergency room chest x-ray shows an enlarged heart. Likely COPD that is undiagnosed. Patient is on 2 L nasal cannula with oxygen saturations of 98%. She was given breathing treatments in the ED and IV Lasix which improved her breathing. She is noted to have inspire turn expiratory wheezing. Patient will be placed in observation and further evaluated. Hospital Course: Patient was admitted and was monitor closely under telemetry Shortness of breath improved well . she was started on bronchodilators and steroids Her oxygen saturations were maintained in room air. She responded well to the treatment. And wants to go home Pulmonology was consulted. recommended adding PPI and stopping lisinopril for chronic cough Patient responded well and is being discharged home today in a stable condition with advice to follow up with PCP in 1 week and also with pulmonology in 1-2 weeks. Patient was advised about medication compliance as well. Vital Signs/Physical Exam: Temp Pulse Resp BP Pulse Ox 97.9 F 63 20 123/62 93 11/17/19 08:00 11/17/19 08:26 11/17/19 08:00 11/17/19 08:26 11/17/19 08:00 General: Alert, In no apparent distress HEENT: Atraumatic, Normocephalic Neck: Supple Respiratory: Clear to auscultation bilaterally, Normal air movement Cardiovascular: Regular rate/rhythm, Normal S1 S2 Capillary refill: <2 Seconds Gastrointestinal: Soft and benign, W/out hepatosplenomegaly Musculoskeletal: No clubbing, No swelling Integumentary: No significant lesion, No tenderness/swelling Neurological: Normal speech, Normal strength at 5/5 x4 extr Lymphatics: No axilla or inguinal lymphadenopathy Laboratory Data at Discharge: WBC 6.5 K/uL (4.3-10.9) 11/17/19 00:50 Hgb 13.6 g/dL (12.0-15.0) 11/17/19 00:50 Hct 40.8 % (36.0-45.0) 11/17/19 00:50 Plt Count 271 K/uL (152-406) 11/17/19 00:50 PT 11.8 SECONDS (9.5-12.5) 11/17/19 00:50 INR 1.00 11/17/19 00:50 Sodium 143 mmol/L (136-145) 11/17/19 00:50 Potassium 3.8 mmol/L (3.5-5.1) 11/17/19 00:50 BUN 18 mg/dL (7-18) 11/17/19 00:50 Creatinine 0.82 mg/dL (0.55-1.3) 11/17/19 00:50 Glucose 105 mg/dL (74-106) 11/17/19 00:50 Magnesium 2.1 mg/dL (1.8-2.4) 11/17/19 00:50 Total Bilirubin 0.5 mg/dL (0.2-1.0) 11/17/19 00:50 AST 14 U/L (15-37) L 11/17/19 00:50 ALT 26 U/L (12-78) 11/17/19 00:50 Alkaline Phosphatase 99 U/L (45-117) 11/17/19 00:50 Home Medications: Amlodipine [Norvasc*] 2.5 mg PO DAILY #30 tab 11/17/19 Aspirin 325 mg PO DAILY 11/17/19 Dronedarone [Multaq*] 400 mg PO BID 11/17/19 Loratadine [Claritin*] 10 mg PO PRN PRN 11/17/19 [place]-3S/Dha/Epa/Fish Oil [Fish Oil 1,200 mg Softgel] 1 cap PO DAILY 11/17/19 Pantoprazole [Protonix Tab] 40 mg PO DAILY #30 tab 11/17/19 New Medications: Amlodipine [Norvasc*] 2.5 mg PO DAILY #30 tab Pantoprazole [Protonix Tab] 40 mg PO DAILY #30 tab Patient Discharge Instructions: Patient to stop her KAROLINE-inhibitor which is a lisinopril may be causing her cough and take a proton pump inhibitor as prescribed by the hospitalist Diet: Regular Activity: Ad johana Followup: Finn Mcgee MD [ACTIVE - CAN ADMIT] - Time spent managing pt's care (in minutes): 42
== END 2019-11-17 11:53 | disposition home or self-care (01) ==
LOC: ER 00:23 → ERHOLD 02:20 → 4TH 04:56
PROVIDERS: ADMIT Emergency Medicine; ATTEND Family Medicine
DX: R05 Cough (principal); T46.4X5A Adverse effect of angiotensin-converting-enzyme inhibitors, initial encounter; I11.9 Hypertensive heart disease without heart failure; T46.4X6A Underdosing of angiotensin-converting-enzyme inhibitors, initial encounter; Z91.128 Patient's intentional underdosing of medication regimen for other reason; Z20.828 Contact with and (suspected) exposure to other viral communicable diseases; I49.3 Ventricular premature depolarization; R94.31 Abnormal electrocardiogram [ECG] [EKG]; Z79.899 Other long term (current) drug therapy; Z77.22 Contact with and (suspected) exposure to environmental tobacco smoke (acute) (chronic); Z87.19 Personal history of other diseases of the digestive system
CPT/HCPCS: 96361; 93005; 87040 ×2; 85025; 80048; 36415; 83735; 85610; 80076; 83605; 81003 ×2; 84484; 83880; 71045; 94760 ×2; 96375; 96374; 99285; U0003; J1940 ×2; J0696; J7030; J2930; J2920; G0378 ×2; J1650